=== PATIENT | female | born 1955 | race Caucasian/White ===

== ENCOUNTER → 2019-12-07 17:48 | Outpatient (CLI) | payer MEDICARE, OTHER, SELFPAY ==
--- NOTE | ~2019-12-07 | MM_ITS ---
EXAMINATION: MM screening ximena BI w cristina HISTORY: Screening mammogram TECHNIQUE: Craniocaudal and mediolateral oblique 3-D tomosynthesis images were obtained and synthetic 2-D images were generated. CAD analysis was submitted and interpreted. COMPARISON: No prior mammogram is available for comparison at this institution. BREAST PARENCHYMAL COMPOSITION: There are scattered areas of fibroglandular density. FINDINGS: There is a 1.8 cm circumscribed mass in the upper outer right breast. There is an approxima tely 8mm mass in the lower outer left breast. There is bilateral asymmetry. Bilateral benign-appearing calcifications are noted. No skin thickening or retraction. IMPRESSION: 1. Bilateral breast masses and asymmetry 2. Bilateral diagnostic mammography and bilateral breast ultrasound examination are recommended BI-RADS Category 0: Incomplete: Needs additional imaging evaluation. Reviewed, dictated and finalized at location A. 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
== END ==
PROVIDERS: Visit Provider Family Medicine
DX: Z12.31 Encounter for screening mammogram for malignant neoplasm of breast (principal); R92.8 Other abnormal and inconclusive findings on diagnostic imaging of breast
CPT/HCPCS: 77063; 77067

== ENCOUNTER → 2019-12-23 09:19 | Outpatient (CLI) | payer MEDICARE, OTHER, SELFPAY ==
--- NOTE | ~2019-12-23 | MMUS_ITS ---
EXAMINATION: MM diagnostic mammo BI, US breast BI complete HISTORY: Follow-up bilateral breast masses TECHNIQUE: Additional 3-D tomosynthesis images of the breasts were performed and synthetic 2-D images were generated. CAD analysis was submitted and interpreted. High resolution bilateral breast ultraso und was performed. COMPARISON: 12/07/2019 FINDINGS: MAMMOGRAPHIC FINDINGS: Breast composed of scattered areas of fibroglandular density. There are multiple masses centered in t he upper outer quadrant of the right breast. There is a cluster of masses in the upper outer quadrant , mid depth measuring 2.1 cm in greatest dimension. There is a smaller mass measuring 1.3 cm slightly more anterior. There is focal asymmetry in the lower inner quadrant of the left breast anteriorly. ULTRASOUND: Right breast ultrasound: There are multiple right breast cysts throughout the breasts, largest at 10:00, 6 cm from the nipple measuring 1.8 cm maximum dimension. Left breast ultrasound: There are multiple left breast cysts. There is a prominent debris-filled duct at the 3:00 position of the left breast at, 4 cm from the nipple. At 5:00, 4 cm from the nipple, there is an irregular shape d hypoechoic mass with heterogeneous internal echotexture. There is mixed posterior attenuation. This mass measures 1.9 x 1.2 x 2 cm with internal vascularity. IMPRESSION: 1. Complex 2 cm left breast mass at 5:00, 4 cm from the nipple with internal vascularity and mixed po sterior attenuation. Ultrasound-guided biopsy recommended. 2. Multiple right breast cysts correspond to the area of mammographic abnormality. No evidence for ma lignancy in the right breast. BI-RADS CATEGORY 4-SUSPICIOUS ABNORMALITY Reviewed, dictated and finalized at location A. OSOFT DEVELOPER IMPRESSION: 1. Complex 2 cm left breast mass at 5:00, 4 cm from the nipple with internal va scularity and mixed posterior attenuation. Ultrasound-guided biopsy recommended . 2. Multiple right breast cysts correspond to the area of mammographic abnormali ty. No evidence for malignancy in the right breast. BI-RADS CATEGORY 4-SUSPICIOUS ABNORMALITY
== END ==
PROVIDERS: PCP Family Medicine; Visit Provider Family Medicine
DX: N63.23 Unspecified lump in the left breast, lower outer quadrant (principal); N60.01 Solitary cyst of right breast
CPT/HCPCS: 76641; 77066

== ENCOUNTER → 2020-01-09 08:02 | Outpatient (CLI) | payer MEDICARE, OTHER, SELFPAY ==
--- NOTE | ~2020-01-09 | MR_ITS ---
EXAMINATION: MR cervical spine wo con EXAM DATE: 01/09/2020 09:10 INDICATION: Neck pain, dizziness. TECHNIQUE: Multi-sequential, multiplanar MR images of the cervical spine were obtained without contra st. Axial T2, axial T2 MERGE sequence. Sagittal T1, T2, T2 fat saturation images also obtained. Th ere is no prior study for comparison. FINDINGS: There is moderate loss of the C5-6 disc height, mild to moderate at C6-7 and mild at C4-5. The vertebral bodies are aligned in the AP dimension. There are no suspicious marrow signal abnormal ities. Cervicomedullary junction is normal in appearance. The spinal cord signal intensity and intrin sic morphology is normal. Level by level evaluation: C2-C3: Disc does not extend beyond the endplate margin. Uncovertebral joint arthropathy: None. Facet joint arthropathy: Mild to moderate left, mild right. Neural foraminal stenosis: No stenosis. Central canal stenosis: No stenosis. C3-C4: Disc does not extend beyond the endplate margin. Uncovertebral joint arthropathy: Mild bilateral. Facet joint arthropathy: Mild bilateral. Neural foraminal stenosis: Mild left. Central canal stenosis: No stenosis. C4-C5: There is a minimal diffuse disc bulge. Uncovertebral joint arthropathy: Mild to moderate right, mild left. Facet joint arthropathy: Mild bilateral. Neural foraminal stenosis: Mild to moderate right. Central canal stenosis: No stenosis. C5-C6: There is a mild to moderate diffuse disc bulge asymmetric to the right Uncovertebral joint arthropathy: Moderate to severe right, mild to moderate left. Facet joint arthropathy: Mild bilateral. Neural foraminal stenosis: Moderate to severe right. Mild left. Central canal stenosis: Mild. C6-C7: There is a mild to moderate diffuse disc bulge. Uncovertebral joint arthropathy: Moderate bilateral. Facet joint arthropathy: Mild to moderate bilateral. Neural foraminal stenosis: Moderate bilateral. Central canal stenosis: Mild. C7-T1: Disc does not extend beyond the endplate margin. Uncovertebral joint arthropathy: Mild bilateral. Facet joint arthropathy: Mild to moderate right, mild left. Neural foraminal stenosis: No stenosis. Central canal stenosis: No stenosis. IMPRESSION: 1. Overall moderate midcervical predominant spondylosis. Reviewed, dictated and finalized at location A.
--- NOTE | ~2020-01-09 | MR_ITS ---
EXAMINATION: MR thoracic spine wo con EXAM DATE: 01/09/2020 09:38 INDICATION: Hyperreflexia, neck pain. Dizziness. Pilomatrical cancer. TECHNIQUE: Multi-sequential, multiplanar MR images of the thoracic spine were obtained without contra st. Sagittal T1, T2, T2 fat saturation, axial T2 weighted images reviewed. There is no prior study for comparison. FINDINGS: The spinal cord signal intensity and intrinsic morphology is normal. There is mild diffuse thoracic disc disease, and overall mild to moderate thoracic facet arthropathy. The thoracic central canal is widely patent. Number than mild neural foraminal stenosis at several thoracic levels. There are no suspicious marrow signal abnormalities. The vertebral bodies are aligned in the AP dimension. Incompletely imaged left renal lesion, imaged portion consistent with cyst. There is small to moderat e sliding gastroesophageal hiatal hernia. IMPRESSION: 1. Mild thoracic disc disease, mild to moderate arthropathy. 2. Small to moderate hiatal hernia. 3. Normal cord signal. Reviewed, dictated and finalized at location A.
== END ==
PROVIDERS: PCP Family Medicine
DX: R29.2 Abnormal reflex (principal); M51.24 Other intervertebral disc displacement, thoracic region; K44.9 Diaphragmatic hernia without obstruction or gangrene; M47.894 Other spondylosis, thoracic region
CPT/HCPCS: 72141; 72146

== ENCOUNTER 2020-02-07 14:38 | Emergency (ER) | payer MEDICARE, OTHER, SELFPAY ==
--- NOTE | ~2020-02-07 | XR_ITS ---
XR humerus LT, XR shoulder LT min 2V 02/07/2020 16:03 (accession [id number]), 02/07/2020 16:04 (accession [id number]) Indication: Left shoulder pain after fall Procedure: 4 views left shoulder and 2 views left humerus Comparison: 02/07/2020 Findings: There is elevation of the left clavicle laterally with acromioclavicular separation and wid ening of the coracoclavicular distance, compatible with acromioclavicular separation. No acute fractu re is identified. No significant soft tissue abnormality. Impression: 1: Left acromioclavicular joint separation. Reviewed, dictated and finalized at location A. Impression: 1: Left acromioclavicular joint separation. Impression: 1: Left acromioclavicular joint separation.
--- NOTE | ~2020-02-07 | CT_ITS ---
EXAMINATION: CT cervical spine wo con DATE: 02/07/2020 15:22 INDICATION: Neck pain after fall TECHNIQUE: Computed tomography (CT) of the cervical spine was performed without intravenous contrast. The dose-length product was 184 mGy-cm. Automated exposure control and iterative reconstruction tech nique were employed. COMPARISON: None FINDINGS: Straightening of cervical lordosis. There is disc narrowing and endplate degenerative manzano e at C5-6 and C6-7. Odontoid process is unremarkable. No evidence for listhesis. No acute fracture or traumatic malalignment. No evidence for perched facet. There are mild uncinate degenerative changes most advanced at C5-6 and C6-7. Lung apices are normal. There is mild carotid atherosclerosis. There is a small hypovascular left thyroid nodule measuring the benign. IMPRESSION: 1. No acute abnormality of the cervical spine. 2: Mild cervical spondylosis. Reviewed, dictated and finalized at location A.
--- NOTE | ~2020-02-07 | XR_ITS ---
XR hip LT min 3V w AP pelvis 02/07/2020 16:03 INDICATION: Left hip pain after fall PROCEDURE: AP 4 views left hip including AP pelvis COMPARISON: No prior studies for comparison. FINDINGS: Fracture, dislocation or subluxation is not identified. Pelvic rings are intact. There are mild degenerative changes of the hips. Sacral foramen are symmetric. The soft tissues appear within n ormal limits. No foreign bodies are identified. IMPRESSION: 1: NO ACUTE BONE OR JOINT ABNORMALITY IDENTIFIED. Reviewed, dictated and finalized at location A.
--- NOTE | ~2020-02-07 | XR_ITS ---
[XR ribs LT 2V w CXR 2V ] INDICATION: Left rib pain after fall TECHNIQUE: Frontal projection of the upper left ribs, frontal projection of the lower left ribs, obli que projection of all the left ribs, frontal inspiratory chest x-ray for interpretation. FINDINGS: There are no displaced rib fractures identified. There are no soft tissue abnormality see n. The lungs are clear. IMPRESSION: 1:No displaced rib fractures. Reviewed, dictated and finalized at location A.
[2020-02-07 14:42] VITALS: BP 153/87; PULSE 71; RESP 18; TEMP 36.8; O2SAT 97
--- NOTE | 2020-02-07 15:08 | ED.FALL ---
HPI - Fall General Chief Complaint: Fall Stated Complaint: fall/left shoulder pain Time Seen by Provider: 02/07/20 14:44 Source: patient Mode of arrival: ambulatory Limitations: no limitations History of Present Illness HPI Narrative: This is a 64 year old female that presents to the ER for left shoulder pain after a fall today. Reports she was on her grandchilds scooter and was going down a hill. Reports she had trouble stopping and fell off of the scooter onto the grass. Reports landing on her left side. Reports since she has had left shoulder, left hip and left sided rib pain. Denies loss of consciousness, vision changes, vomiting, numbness, or weakness. Related Data Home Medications Medication Instructions Recorded Confirmed atorvastatin 40 mg tablet 40 mg PO DAILY 11/05/19 citalopram 40 mg tablet 20 mg PO DAILY 11/05/19 hydrocodone 5 mg-acetaminophen 325 1 tablet PO Q6H PRN 11/05/19 mg tablet losartan 100 mg tablet 100 mg PO DAILY 11/05/19 Allergies Allergy/AdvReac Type Severity Reaction Status Date / Time Penicillins Allergy Intermediate Hives Verified 02/07/20 14:50 lisinopril AdvReac Unknown Cough Verified 02/07/20 14:50 Review of Systems Review of Systems: Narrative: CONSTITUTIONAL: Denies fever EYES: Denies visual changes CARDIOVASCULAR: Reports chest pain RESPIRATORY: Denies dyspnea. GASTROINTESTINAL: Denies abdominal pain, vomiting MUSCULOSKELETAL: Reports joint pain and myalgia. Denies back pain NEUROLOGIC: Denies headache, numbness, or weakness. All systems reviewed & are unremarkable except as noted in HPI and below PMFSH Past Medical History Medical History (Updated 02/07/20 @ 17:00 by Danyelle Borja PA-C) Essential hypertension Mixed hyperlipidemia Social History Social History Smoking status: Never smoker Alcohol intake: current Gender identity (if verbalized by the patient): Female Exam Narrative: Exam Narrative: GENERAL: Well-appearing, well-nourished, and in no acute distress. HEAD: Normocephalic, atraumatic. EYES: PERRLA and EOMI. ENT: Nares clear, no rhinorrhea or epistaxis. Mucous membranes moist. Oropharynx without tonsillar hypertrophy exudate or other lesions. Bilateral TMs pearly barroso non-bulging NECK: Supple. No adenopathy or masses. Tender to palpation of midline lower cervical spine CHEST: Clear to auscultation. No respiratory distress. No wheezes rales or rhonchi. Tender to palpation of left anterior lower chest wall HEART: Regular rate and rhythm. No murmur heard. Normal peripheral pulses. ABDOMEN: Soft, nontender, nondistended, normal active bowel sounds. EXTREMITIES: Normal range of motion, except decreased ROM in the left shoulder due to pain. No edema. Strength equal in bilateral upper and lower extremities BACK: No midline thoracic or lumbar spine tenderness SKIN: Warm, dry, no rash. NEURO: No focal deficits. Alert and oriented x3. CN II-XII grossly intact PSYCH: Normal mood and affect Course Consultations Consultation #1: Spoke with Dr. Phillips about patient and work-up will follow-up in clinic Date: 02/07/20 Time: 17:00 Vital Signs Vital signs: Vital Signs Temperature 98.3 F 02/07/20 14:42 Pulse Rate 71 02/07/20 14:42 Respiratory Rate 18 02/07/20 14:42 Blood Pressure 153/87 H 02/07/20 14:42 Pulse Oximetry 97 02/07/20 14:42 Temperature 98.3 F 02/07/20 14:42 Pulse Rate 62 02/07/20 16:51 Respiratory Rate 18 02/07/20 16:51 Blood Pressure 129/76 02/07/20 16:51 Pulse Oximetry 100 02/07/20 16:51 Procedures Orthopedic Splinting/Casting Injury #1: Splinting/Casting Date: 02/07/20 Splinting/Casting Time: 17:01 Side: left Upper Extremity Injury Location: shoulder Upper Extremity Immobilizer: sling/shoulder immobilizer Pre-Procedure Neuro Vascular Exam: normal Post-Procedure Neuro Vascular Exam: normal MDM - Fall MDM N
[2020-02-07 16:51] VITALS: BP 129/76; PULSE 62; RESP 18; O2SAT 100
--- NOTE | 2020-02-07 16:51 | PC.NURSE ---
pt refuses pain meds at this time despite severe pain lt shoulder. sling placed per orders
== END 2020-02-07 17:28 | disposition home or self-care (01) ==
PROVIDERS: Emergency Provider Emergency Medicine; PCP Family Medicine
DX: S43.102A Unspecified dislocation of left acromioclavicular joint, initial encounter (principal); I10 Essential (primary) hypertension; E78.2 Mixed hyperlipidemia; M47.812 Spondylosis without myelopathy or radiculopathy, cervical region; V00.141A Fall from scooter (nonmotorized), initial encounter
CPT/HCPCS: 71045; 71101; 72125; 73030; 73060; 73502; 99284; A4565

== ENCOUNTER 2021-04-19 13:46 | Outpatient (CLI) | payer MEDICARE, OTHER, SELFPAY ==
[2021-04-19 14:39] LABS: Basophils Absolute Auto 0.1 K/mm3 (0.0-0.1); Basophils Percent Auto 0.6 % (0.2-1.2); Eosinophils Absolute Auto 0.4 K/mm3 (0-0.3); Eosinophils Percent Auto 4.3 % (0-4.4); Hemoglobin 13.6 g/dL (12.0-15.0); Immature Granulocyte Absolute 0.04 K/mm3 (0.00-0.031); Immature Granulocyte Percent A 0.5 % (0-0.5); Lymphocytes Absolute Auto 2.74 K/mm3 (0.9-3.2); Lymphocytes Percent Auto 33.5 % (18.3-44.2); Mean Corpuscular Hemoglobin 30.8 pg (26-34); Mean Corpuscular Volume 90.7 fl (80-100); Mean Platelet Volume 11.4 fl (7.4-10.4); Monocytes Absolute Auto 0.7 K/mm3 (0.1-0.6); Monocytes Percent Auto 8.4 % (2.6-8.5); Neutrophils Absolute Auto 4.3 K/mm3 (1.3-6.7); Neutrophils Percent Auto 52.7 % (45.5-73.1); Platelet Count Result 262 k/mm3 (150-375); Red Blood Count 4.41 M/mm3 (4.2-5.4); White Blood Count 8.2 K/mm3 (4.5-10.0)
[2021-04-19 14:48] LABS: Anion Gap 4 mmol/L (8-16); Blood Urea Nitrogen 11 mg/dL (7-17); Carbon Dioxide 32 mmol/L (22-30); Chloride 107 mmol/L (98-107); Estimated Glomerular Filt Rate > 60; Glucose 129 mg/dL (65-105); Potassium 3.8 mmol/L (3.4-5.0); Sodium 143 mmol/L (137-145)
== END 2021-04-19 13:47 | disposition home or self-care (01) ==
LOC: ANHLAB 13:51
PROVIDERS: PCP Family Medicine; Visit Provider Family Medicine
DX: K62.5 Hemorrhage of anus and rectum (principal)
CPT/HCPCS: 36415; 80048; 85025

== ENCOUNTER 2021-04-19 14:19 | Emergency (ER) | payer MEDICARE, OTHER, SELFPAY ==
--- NOTE | ~2021-04-19 | XR_ITS ---
EXAMINATION: XR chest 2V 04/19/2021 14:31 INDICATION: Productive cough PROCEDURE: PA and lateral views of the chest COMPARISON: 02/07/2020 FINDINGS: The lungs are clear. The cardiomediastinal silhouette is within normal limits. There are no pleural effusions. There is no pneumothorax suspected. IMPRESSION: 1: NO ACUTE CARDIOPULMONARY DISEASE. Reviewed, dictated and finalized at location B.
[2021-04-19 14:20] VITALS: BP 174/91; PULSE 64; RESP 16; TEMP 36.7; O2SAT 96
--- NOTE | 2021-04-19 15:50 | ED.GENADULT ---
HPI - General Adult General Chief complaint: Upper Respiratory Infection Stated complaint: cough Time Seen by Provider: 04/19/21 14:32 Source: patient, family and RN notes reviewed Mode of arrival: ambulatory Limitations: no limitations History of Present Illness HPI narrative: Patient is a 65-year-old female who presents to emergency department for evaluation of cough that is been present for over a week started with congestion rhinorrhea and now has cough productive of phlegm patient was having outpatient blood work performed today CBC and chemistry ordered by primary care patient is seeing primary care tomorrow Dr. Vela patient notes that she has had some painless rectal bleeding recently with history of hemorrhoids has had constipation as well patient denies fever vomiting. Patient was seen at urgent care was prescribed some steroids earlier in the course of the symptoms which improved at that time but now she is having cough Related Data Home Medications Medication Instructions Recorded Confirmed cetirizine 10 mg capsule 10 mg PO DAILY PRN 11/09/20 03/07/21 esomeprazole magnesium 20 mg 20 mg PO DAILY 11/09/20 03/07/21 capsule,delayed release ascorbate calcium (vitamin C) 500 500 mg PO DAILY 11/11/20 03/07/21 mg tablet lactobacillus combination no.9 4 4,000 mmu cells PO DAILY 11/11/20 03/07/21 billion cell capsule multivit,mineral-folic acid 800 tablet PO 11/11/20 03/07/21 mcg-vit K 100 mcg-herbal no.289 tablet cholecalciferol (vitamin D3) 25 25 mcg PO DAILY 03/07/21 03/07/21 mcg (1,000 unit) capsule Allergies Allergy/AdvReac Type Severity Reaction Status Date / Time Penicillins Allergy Intermediate Hives Verified 04/19/21 14:44 lisinopril AdvReac Unknown Cough Verified 04/19/21 14:44 Review of Systems Review of Systems: All systems reviewed & are unremarkable except as noted in HPI and below PMFSH Past Medical History Medical History Essential hypertension Memory loss Mixed hyperlipidemia Primary osteoarthritis of right knee Surgical History Surgical History History of breast biopsy 2019 left breast excisional: scar /benign 2004 right breast: benign Family History Family History Father Diabetes mellitus Hypertension Mother Depression Grandparent Family history of alcoholism Family history of malignant neoplasm of breast in first degree relative Family history of malignant neoplasm of breast Social History Social History Alcohol intake: current Gender identity (if verbalized by the patient): Female Exam Narrative: Exam Narrative: GENERAL: Well-appearing, well-nourished, and in no acute distress. HEAD: Normocephalic, atraumatic. EYES: PERRLA and EOMI. ENT: Nares clear, no rhinorrhea or epistaxis. Mucous membranes moist. Oropharynx without tonsillar hypertrophy exudate or other lesions. Bilateral TMs pearly barroso nonbulging CHEST: Clear to auscultation. No respiratory distress. No wheezes rales or rhonchi HEART: Regular rate and rhythm. No murmur heard. EXTREMITIES: Normal range of motion. No edema. SKIN: Warm, dry, no rash. NEURO: No focal deficits. Alert and oriented x3. PSYCH: Normal mood and affect. Course Course Emergency Course: Patient presented with URI symptoms no pneumonia seen on exam normal vital signs her blood work from today was reviewed and is normal patient advised to follow with primary care tomorrow as planned will be given medications for symptoms is felt appropriate for outpatient reevaluation patient is also been given gastroenterology referral for her hemorrhoids and rectal bleeding and advised to use MiraLAX for constipation Vital Signs Vital signs: Vital Signs Temperature 98.1 F 04/19/21 14:20 Pulse Rate 64 06/
[2021-04-19 16:15] VITALS: BP 158/95; PULSE 53; O2SAT 100
== END 2021-04-19 16:02 | disposition home or self-care (01) ==
PROVIDERS: Emergency Provider Emergency Medicine; PCP Family Medicine
DX: J06.9 Acute upper respiratory infection, unspecified (principal); I10 Essential (primary) hypertension; E78.2 Mixed hyperlipidemia; M17.11 Unilateral primary osteoarthritis, right knee
CPT/HCPCS: 36415; 71046; 80048; 85025; 99283

== ENCOUNTER → 2021-07-04 17:00 | Outpatient (CLI) | payer MEDICARE, OTHER, SELFPAY ==
--- NOTE | ~2021-07-04 | XR_ITS ---
XR hip LT min 3V w AP pelvis 07/04/2021 17:54 Indication: Left hip pain Procedure: 3 views left hip including AP pelvis Comparison: 02/07/2020 Findings: No fracture, subluxation or dislocation. Pelvic rings are intact. Sacral foramen are symmet luann. Impression: 1: No acute fracture. Reviewed, dictated and finalized at location A. Impression: 1: No acute fracture.
--- NOTE | ~2021-07-04 | XR_ITS ---
XR lumbar spine 2-3V 07/04/2021 17:54 Indication: Back pain Procedure: 3 views lumbar spine Comparison: No prior studies for comparison. Findings: There is dextrocurvature of the lumbar spine. There is disc narrowing at all lumbar levels. There is moderate multilevel facet hypertrophy. No acute fracture, subluxation or dislocation. No ev idence for spondylolisthesis. Sacral foramen are symmetric. Impression: 1: Moderate lumbar spondylosis with dextroscoliosis. Reviewed, dictated and finalized at location A. Impression: 1: Moderate lumbar spondylosis with dextroscoliosis.
== END ==
PROVIDERS: PCP Family Medicine; Visit Provider Physician Assistant Medical
DX: M25.552 Pain in left hip (principal); M54.16 Radiculopathy, lumbar region; M47.816 Spondylosis without myelopathy or radiculopathy, lumbar region; M41.86 Other forms of scoliosis, lumbar region
CPT/HCPCS: 72100; 73502

== ENCOUNTER 2021-08-09 07:36 | Outpatient (CLI) | payer MEDICARE, OTHER, SELFPAY ==
--- NOTE | ~2021-08-09 | MR_ITS ---
EXAMINATION: MR knee LT wo con DATE: 08/09/2021 08:41 INDICATION: Unilateral primary osteoarthritis of the left knee TECHNIQUE: Magnetic resonance imaging (MRI) of the left knee was performed without intravenous contra st. Sequences included coronal PD-weighted FSE, coronal PD-weighted FS FSE, sagittal T2-weighted FSE , sagittal PD-weighted FS FSE and axial PD weighted fat saturated FSE. COMPARISON: Knee radiographs dated 07/06/2021 FINDINGS: Evaluation mildly limited by motion artifact on the on all but the renard PD weighted series includin g repeated fat saturated sagittal and coronal sequences. Medial compartment: Medial meniscus is normal. Partial-thickness cartilage loss with regions of more focal deep chondral ulceration along the anterior to central weightbearing medial femoral condyle and at the anterior and medial aspect of the medial tibial plateau, the latter with underlying subarticular edema. Are prese rved cartilage thickness but with small deep deep chondral ulceration with mild underlying subarticul ar edema at the posterior weightbearing lateral femoral condyle. Lateral compartment: Lateral meniscus is normal. Articular cartilage is normal. Patellofemoral compartment: Deep chondral ulceration and fissuring with minimal underlying subarticular edema at the medial emanuel lar facet and central aspect of the patellar apical ridge. Deep chondral fissuring without degenerati ve subchondral changes at the cephalad aspect of both the medial and lateral trochlea. Ligaments and tendons: Anterior and posterior cruciate ligaments are normal. The medial collateral ligament and fibular rufus ateral ligament complex are normal. The extensor mechanism is normal. The visualized medial and later al hamstring tendons as well as the iliotibial band are normal. Fluid: Small left knee joint effusion with moderate synovitis at the suprapatellar pouch and at the posterio r recess of the knee. No loose osteochondral bodies identified. Small amount of fluid within the semi membranosus bursa consistent with mild bursitis. Osseous/other: Bone alignment is normal. Small low signal intensity bone island at the posterior weightbearing media l femoral condyle. No fracture or pathologic marrow replacing process. IMPRESSION: 1. Mild osteoarthritis with moderate and high-grade chondromalacia in the medial and patellofemoral c ompartments. 2. Likely reactive small left knee joint effusion with moderate synovitis. 3. Semimembranosus bursitis. Reviewed, dictated and finalized at location A. IMPRESSION: 1. Mild osteoarthritis with moderate and high-grade chondromalacia in the media l and patellofemoral compartments. 2. Likely reactive small left knee joint effusion with moderate synovitis. 3. Semimembranosus bursitis.
== END 2021-08-09 07:37 | disposition home or self-care (01) ==
LOC: ANHIMG 07:39
PROVIDERS: PCP Family Medicine; Visit Provider Orthopaedic Surgery
DX: M17.12 Unilateral primary osteoarthritis, left knee (principal); M70.52 Other bursitis of knee, left knee; S83.92XA Sprain of unspecified site of left knee, initial encounter
CPT/HCPCS: 73721

== ENCOUNTER → 2021-11-27 12:58 | Outpatient (CLI) | payer MEDICARE, OTHER, SELFPAY ==
--- NOTE | ~2021-11-27 | US_ITS ---
EXAMINATION: US renal BI DATE: 11/27/2021 13:31 INDICATION: Persistent proteinuria. Urinary frequency. TECHNIQUE: Multiple ultrasound grayscale images of the kidneys were obtained. COMPARISON: Chest CT 06/16/2018 FINDINGS: The right kidney measures 9.0 x 4.3 x 5.4 cm. The left kidney measures 11.5 x 5.8 x 6.0 cm. The kidne ys demonstrate normal parenchymal echogenicity. There is a 3.8 cm cyst in left kidney. There is no hy dronephrosis. The bladder is normal. IMPRESSION: 1. Normal kidney sizes. No hydronephrosis. Reviewed, dictated and finalized at location A. 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
== END ==
PROVIDERS: PCP Internal Medicine Nephrology; Visit Provider Internal Medicine Nephrology
DX: R80.1 Persistent proteinuria, unspecified (principal)
CPT/HCPCS: 76775

== ENCOUNTER 2023-07-03 09:31 | Outpatient (CLI) | payer MEDICARE, OTHER, SELFPAY ==
--- NOTE | ~2023-07-03 | NM_ITS ---
EXAMINATION: NM ivan stress w perfusion DATE: 07/03/2023 11:55 INDICATION: Encounter for preprocedural cardiac exam. Type 2 diabetes. TECHNIQUE: Rest images were obtained following intravenous administration of 11 mCi Tc99m tetrofosmin (Myoview). The patient was infused intravenously with Lexiscan (Regadenoson). Then, 22.8 mCi Tc99m t etrofosmin (Myoview) was administered intravenously, and stress images were obtained. Data was recons tructed into short axis and horizontal and vertical long axis SPECT images. Gated SPECT images were a lso obtained. COMPARISON: None. FINDINGS: There is no definite reversible or fixed perfusion abnormality to suggest ischemia or infar ction. There is normal left ventricular chamber size, wall motion and ejection fraction. Left ventr icular ejection fraction measures >70%. IMPRESSION: 1. Normal myocardial perfusion at rest and during stress. 2. Left ventricular ejection fraction measuring >70%. Reviewed, dictated and finalized at location A.
--- NOTE | 2023-07-03 10:00 | EST_ITS ---
Patient Info Name: Yani García Age: 68 years : 1955 Gender: Female Ht: 62 in Wt: 128 lbs BSA: 1.60 m2 HR: 51 bpm BP: 134 / 90 mmHg Exam Date: 07/03/2023 10:32 AM Exam Location: [facility] Stress Patient Status: Outpatient Admit Date: 07/03/2023 Staff Ordering Physician: Xiao Vela MD Attending Provider: Xiao Vela MD Exercise Technologist: Kenyetta Hill [facility] Exercise Physician: Octavio Kohler DO Exam Type: CA stress ivan w NM Study Info A regadenoson stress test was performed. Summary 1. 1. Negative lexiscan stress test for ischemic ST changes by ECG criteria. 2. 2. Stable hemodynamics throughout the test. 3. 3. Nuclear scan to follow and will be reported separately. Please correlate with it. 4. 4. Patient informed of the above results. Protocol: Lexiscan Stress ECG Details Stage: REST Duration (min): 1 min : 0 sec HR (bpm): 51 SBP (mmHg): 134 DBP (mmHg): 90 Stage: REST Duration (min): 14 min : 47 sec HR (bpm): 52 SBP (mmHg): 134 DBP (mmHg): 90 Stage: STAGE 1 Duration (min): 1 min : 0 sec HR (bpm): 69 SBP (mmHg): 131 DBP (mmHg): 78 Stage: RECOVERY Duration (min): 1 min : 0 sec HR (bpm): 77 SBP (mmHg): 131 DBP (mmHg): 78 Stage: RECOVERY Duration (min): 2 min : 0 sec HR (bpm): 69 SBP (mmHg): 131 DBP (mmHg): 78 Stage: RECOVERY Duration (min): 3 min : 0 sec HR (bpm): 65 SBP (mmHg): 162 DBP (mmHg): 82 Stage: RECOVERY Duration (min): 4 min : 0 sec HR (bpm): 64 SBP (mmHg): 162 DBP (mmHg): 82 Stage: RECOVERY Duration (min): 5 min : 0 sec HR (bpm): 62 SBP (mmHg): 154 DBP (mmHg): 86 Stage: RECOVERY Duration (min): 5 min : 5 sec HR (bpm): 63 SBP (mmHg): 154 DBP (mmHg): 86 Rest HR: 52 bpm Peak HR: 77 bpm Rest Sys BP: 134 mmHg Peak Sys BP: 162 mmHg Max Pred HR: 150 bpm % Max Pred HR: 51 % Target HR: 128 bpm Max RPP: 12,474 bpm*mmHg Termination Reason: Completed protocol Cardiac Symptoms: Shortness of breath, Headache, nausea Total Time: 1 min : 0 sec Rest Hutchins BP: 90 mmHg Peak Hutchins BP: 82 mmHg Total Dose: 0.4 mg Resting ECG Sinus bradycardia. Stress ECG No ST changes. Arrhythmias None. Report Signatures
== END 2023-07-03 09:32 | disposition home or self-care (01) ==
PROVIDERS: PCP Family Medicine; Visit Provider Family Medicine
DX: Z01.810 Encounter for preprocedural cardiovascular examination (principal); E11.9 Type 2 diabetes mellitus without complications; R80.9 Proteinuria, unspecified
CPT/HCPCS: 78452; 93017; A9502; J2785

== ENCOUNTER → 2023-07-16 10:45 | Outpatient (CLI) | payer MEDICARE, SELFPAY ==
--- NOTE | ~2023-07-16 | XR_ITS ---
Clinical Indication: Hypertension, preoperative clearance PA and lateral views of the chest: Comparison: 04/19/2021 Findings: The lungs are clear, without evidence of focal consolidation or pleural effusion. Cardiome diastinal silhouette is within normal limits. Bones and soft tissues are unremarkable. Impression: Normal chest. Reviewed, dictated and finalized at location . Impression: Normal chest.
== END ==
PROVIDERS: Visit Provider Family Medicine
DX: E11.9 Type 2 diabetes mellitus without complications (principal); I10 Essential (primary) hypertension; Z01.818 Encounter for other preprocedural examination
CPT/HCPCS: 71046

== ENCOUNTER 2023-07-17 15:33 | Outpatient (CLI) | payer MEDICARE, SELFPAY | END 2023-07-17 15:34 | disposition home or self-care (01) | DX: M17.11 Unilateral primary osteoarthritis, right knee (principal); I20.9 Angina pectoris, unspecified; J45.909 Unspecified asthma, uncomplicated; I10 Essential (primary) hypertension; E13.9 Other specified diabetes mellitus without complications; N19 Unspecified kidney failure; D49.89 Neoplasm of unspecified behavior of other specified sites | CPT/HCPCS: 87081 ==

== ENCOUNTER 2023-08-21 08:14 | Outpatient (CLI) | payer MEDICARE, SELFPAY ==
[2023-08-21 10:30] LABS: Hematocrit 45.2 % (37.0-47.0); Hemoglobin 14.3 g/dL (12.0-15.0); Mean Corpuscular HGB Conc 31.6 g/dl (32-36); Mean Corpuscular Volume 91.7 fl (80-100); Platelet Count Result 216 k/mm3 (150-375); Red Blood Count 4.93 M/mm3 (4.2-5.4); Red Cell Distribution Width 14.3 % (11.5-14.5); White Blood Count 6.9 K/mm3 (4.5-10.0)
[2023-08-21 10:36] LABS: Alanine Aminotransferase 20 U/L (6-35); Albumin Level 3.9 g/dL (3.5-5.1); Alkaline Phosphatase 84 U/L (38-126); Anion Gap 5 mmol/L (8-16); Aspartate Amino Transferase 27 U/L (14-36); Blood Urea Nitrogen 18 mg/dL (7-17); Calcium 9.1 mg/dL (8.4-10.2); Carbon Dioxide 29 mmol/L (22-30); Chloride 105 mmol/L (98-107); Estimated Glomerular Filt Rate > 60; Glucose 118 mg/dL (65-110); Sodium 139 mmol/L (137-145)
[2023-08-21 10:37] LABS: Appearance Urine Clear (Clear); Bacteria Urine None Seen /hpf; Bilirubin Urine Negative (Negative); Blood Urine Negative (Negative); Color Urine Yellow (Yellow); Glucose Urine UA 3+ mg/dL (Negative); Ketones Urine Negative (Negative); Leukocyte Esterase Ur Trace LEU/UL (Negative); Nitrate Urine Negative (Negative); Non Pathogenic Casts 0-2; Protein Urine Negative (Negative); RBC Urine 0-2 /hpf (0-2); Squamous Epithelial Cell Urine None seen /hpf (Few)
[2023-08-21 10:37] LABS: INR 0.9; Prothrombin Time 12.7 Seconds (11.1-14.7)
[2023-08-21 10:38] LABS: Partial Thromboplastin Time 27.5 SECONDS (22.3-36.8)
[2023-08-21 10:43] LABS: Add Urine Microscopic? YES; Specific Grav Ur 1.038 (1.001-1.035)
== END 2023-08-21 08:15 | disposition home or self-care (01) ==
DX: M17.11 Unilateral primary osteoarthritis, right knee (principal); I20.9 Angina pectoris, unspecified; J45.909 Unspecified asthma, uncomplicated; I10 Essential (primary) hypertension; N19 Unspecified kidney failure; D49.89 Neoplasm of unspecified behavior of other specified sites; E13.00 Other specified diabetes mellitus with hyperosmolarity without nonketotic hyperglycemic-hyperosmolar coma (NKHHC); R82.998 Other abnormal findings in urine
CPT/HCPCS: 36415; 80053; 81001; 85027; 85610; 85730; 86850; 86900; 86901; 87081; 87086; 87088

== ENCOUNTER 2024-11-18 12:47 | Outpatient (CLI) | payer MEDICARE, SELFPAY ==
--- NOTE | ~2024-11-18 | XR_ITS ---
Right Knee Technique: AP, lateral, and sunrise views were obtained. Clinical History: Pain Findings: No fracture or dislocation is seen. Right knee arthroplasty in place. No hardware complicat ion is evident.. Soft tissues are unremarkable. No joint effusion is seen. Impression: No acute abnormality. Right knee arthroplasty in place. Reviewed, dictated and finalized at location M. GRINDER FEEDER Impression: No acute abnormality. Right knee arthroplasty in place.
--- NOTE | ~2024-11-18 | XR_ITS ---
Left Knee Technique: AP, lateral, and sunrise views were obtained. Clinical History: Arthritis Findings: No fracture or dislocation is seen. Osseous alignment is anatomic. Joint spaces are preserv ed, with minimal degenerative spurring about the knee. Soft tissues are unremarkable. No joint effusi on is seen. Impression: Minimal degenerative spurring about the knee. Reviewed, dictated and finalized at location M. NATOLOGY PHYSICIAN Impression: Minimal degenerative spurring about the knee.
== END 2024-11-18 12:48 | disposition home or self-care (01) ==
PROVIDERS: PCP Family Medicine; Visit Provider Orthopaedic Surgery
DX: M17.12 Unilateral primary osteoarthritis, left knee (principal); Z96.651 Presence of right artificial knee joint
CPT/HCPCS: 73564